=== PATIENT | male | born 1995 | race Two or more races ===

== ENCOUNTER 2020-12-20 12:06 | Emergency (ER) | payer SELFPAY ==
[~2020-12-20] VITALS: Ht 170.2 cm; Wt 85.0 kg
[2020-12-20 12:23] VITALS: BP 145/75
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
[2020-12-20] MEDS ORDERED: PRED20TA PO (13:53)
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
== END 2020-12-20 14:25 | disposition home or self-care (01) ==
LOC: ER 12:06
DX: M25.562 Pain in left knee (principal); M54.12 Radiculopathy, cervical region; Z87.891 Personal history of nicotine dependence
CPT/HCPCS: 72125; 72128; 99285